=== PATIENT | male | born 1960 | race Caucasian/White ===

== ENCOUNTER 2022-11-14 18:58 | Emergency (ER) | payer OTHER, SELFPAY ==
[2022-11-14 19:17] VITALS: BP 148/84; PULSE 90; RESP 18; TEMP 36.9; O2SAT 99
--- NOTE | 2022-11-14 19:51 | PC.NURSE ---
1952-PATIENT REPORTS HE TOOK OXYCODONE 5 MG APPROXIMATELY ONE HOUR AGO. PATIENT REPORTS NO IMPROVEMENT IN SYMPTOMS. PATIENT REPORTS OXYCODONE IS IN EXCESS OF 2 YEARS OLD.
--- NOTE | 2022-11-14 20:44 | ED.NECK ---
HPI - Neck Pain/Injury General Chief Complaint: Neck Pain/Injury Stated Complaint: neck spasms x 1 week Time Seen by Provider: 11/14/22 19:58 History of Present Illness HPI Narrative: Patient is a 62-year-old male presenting with neck pain. Patient states that for the last 6 days he has had left-sided neck pain and spasms. States that it has intermittently gotten better but then this morning it was again as severe as it was on the first day. States that it is on the left side of his neck and goes into his left shoulder. States it feels like there is a kink in his neck. States he took some old oxycodone earlier today which did not really help. He denies any numbness or weakness. No speech or ambulatory difficulties. No vision changes. Denies recent trauma. Denies further complaints. Related Data Allergies Allergy/AdvReac Type Severity Reaction Status Date / Time No Known Allergies Allergy Unknown Verified 01/27/17 18:57 Review of Systems Review of Systems: All systems reviewed & are unremarkable except as noted in HPI and below Exam Narrative: GENERAL: Well-appearing, well-nourished, and in no acute distress. HEAD: Normocephalic, atraumatic. EYES: PERRLA and EOMI. ENT: Nares clear, no rhinorrhea or epistaxis. Mucous membranes moist. NECK: Supple. No midline tenderness; +tenderness of left sided paraspinal muscles in cervical spine into the left shoulder and trapezius CHEST: No respiratory distress. HEART: Regular rate and rhythm. ABDOMEN: nondistended EXTREMITIES: Normal range of motion. No edema. SKIN: Warm, dry, no rash. NEURO: No focal deficits. Alert and oriented x3. PSYCH: Normal mood and affect. Course Vital Signs Vital signs: Vital Signs Temperature 98.5 F 11/14/22 19:17 Pulse Rate 90 11/14/22 19:17 Respiratory Rate 18 11/14/22 19:17 Blood Pressure 148/84 H 11/14/22 19:17 Pulse Oximetry 99 11/14/22 19:17 Temperature 98.5 F 11/14/22 19:17 Pulse Rate 85 11/14/22 21:28 Respiratory Rate 20 11/14/22 21:28 Blood Pressure 130/90 11/14/22 21:28 Pulse Oximetry 100 11/14/22 21:28 MDM - Neck Pain/Injury MDM Narrative Medical decision making narrative: Patient is a 62-year-old male presenting with left-sided neck pain off and on for the last week. Vitals are within normal limits. Exam is remarkable for the above. He is neurologically intact. Suspect cervical muscle spasms as they have been coming and going and he states that certain movements worsen it. He is focally tender in his left paraspinal muscles extending into his left trapezius. We will treat symptomatically with IM Toradol, Flexeril, Vicodin. Advise very close PCP follow-up. Strict return precautions given. Patient and his voiced understanding and are agreeable with plan. Discharged in stable condition. Differential Diagnosis Differential diagnosis: Likely strain of neck muscle Medical Records Attestation: I reviewed the patient's medical records. Critical Care Time Critical Care Time Critical Care Time: No Discharge Plan Discharge Clinical Impression: Cervical paraspinal muscle spasm Patient Disposition: Home, Self-Care Condition: Stable Instructions: Antibiotic Form, Neck Pain (ED) Additional Instructions: Please use the medications as prescribed for your pain. Please follow-up closely with your PCP. If your symptoms worsen, you develop numbness or weakness, vision or speech changes, or other concerning symptoms arise, please return to the ER. Prescriptions: New hydrocodone-acetaminophen 5-325 mg tablet 1 tablet PO Q6H PRN (Reason: pain) Qty: 7 0RF cyclobenzaprine 10 mg tablet 10 mg PO TID PRN (Reason: muscle spasm) Qty: 20 0RF Follow-up/Referrals: Luis Enrique,Gus Shah MD [Primary Care Provider] -
[2022-11-14] MEDS: HYDROcodone/acetaminophen (*CRX) 5-325 MG TABLET 1 TAB PO (20:52)
[2022-11-14] MEDS: CYCLOBENZAPRINE HCL 10 MG TABLET PO (20:52)
[2022-11-14] MEDS: KETOROLAC 30 MG/ML VIAL (*BKC) IM (20:54)
[2022-11-14 21:28] VITALS: BP 130/90; PULSE 85; RESP 20; O2SAT 100
== END 2022-11-14 21:10 | disposition home or self-care (01) ==
PROVIDERS: Emergency Provider Emergency Medicine; PCP Internal Medicine
DX: M62.838 Other muscle spasm (principal)
CPT/HCPCS: 96372; 99283; A9270; J1885

== ENCOUNTER 2025-06-01 06:58 | Outpatient (CLI) | payer MEDICARE, SELFPAY ==
--- NOTE | ~2025-06-01 | MR_ITS ---
EXAMINATION: MR shoulder LT wo con DATE: 06/01/2025 07:32 INDICATION: Left shoulder lesion TECHNIQUE: Magnetic resonance imaging (MRI) of the left shoulder was performed without intravenous contrast. Sequences included axial PD-weighted FS FSE, coronal oblique PD-weighted FS FSE, coronal oblique T2-weighted FS FSE, sagittal PD-weighted FS FSE, and sagittal T1-weighted SE. COMPARISON: None. FINDINGS: Coracoacromial arch: There are postoperative change of prior acromioplasty and distal clavicle resection including multiple foci of susceptibility artifact. Rotator cuff: Numerous additional foci of susceptibility artifact along the greater tuberosity consistent with likely prior rotator cuff repair. There is a recurrent full- thickness tear involving all but a very small portion of the anterior most supraspinatus tendon and posterior most infraspinatus tendon. There is a small amount of free tendon material along the greater tuberosity footplate. There is 4 cm medial retraction of the tear margin which is positioned at the level of the glenoid labrum. The teres minor tendon is normal. And mild to moderate disc compatible there is tendinopathy with partial tear along the lateral margin of the lesser tuberosity footplate. This extends up to 2 cm medially as a longitud inal split tear between the deeper portion of the tendon which remains contiguous with the lesser tuberosity and the bursal side of the tendon which remains contiguous with the intact transverse humeral ligament. There is mild fatty atrophy of the supraspinatus and infraspinatus muscle bellies. Biceps tendon, glenoid labrum and glenohumeral cartilage: The long head of the biceps tendon is subluxed across the medial rim of the intertubercular groove and into the subscapularis tendon tear defect. There is moderate tendinopathy of the long head biceps tendon with fusiform thickening and increased signal adjacent the junction of the intra-articular and extra- articular portions of the tendon. There is thickening and amorphous increased signal along the posterior glenoid labrum consistent with labral degeneration. There is a more well-defined linear tear at the base of the posterior superior labrum. Moderate glenohumeral osteoarthritis with partial-thickness cartilage loss with smooth chondral surface involving greater than 50% of the cartilage thickness along the cephalad aspect of the glenoid and the superomedial aspect of the humeral head. Fluid: Moderate glenohumeral joint effusion which extends through the full-thickness rotator cuff tear ischemic fluid in the subacromial/subdeltoid bursa. There is prominent synovitis at the axillary recess. There is increased fluid and mild synovitis along the long head biceps tendon sheath. No loose osteochondral bodies. Bones: Bone alignment is normal. No fracture or pathologic marrow replacing process. IMPRESSION: 1. Postoperative change of prior acromioplasty, distal clavicle resection and rotator cuff repair with recurrent large full-thickness tear involving the majority of the supraspinatus and infraspinatus tendons. 2. Moderate tendinopathy and partial-thickness tear along the lateral side of the lesser tuberosity footplate of the tendon propagating 3 cm medially is a split tear between the deep and bursal sides of the tendon. 3. Mild bicipital tenosynovitis with moderate tendinopathy of the long head biceps tendon which is subluxed across the medial rim of the intertubercular groove and into the subscapular tendon tear defect. 4. Moderate glenohumeral osteoarthritis with degeneration of the inferior labrum and small tear at the posterior inferior labrum. Reviewed, dictated and finalized at location [facility]. [employer] [employer] IMPRESSION: 1. Postoperative change of prior acromioplasty, distal clavicle resection and r otator cuff repair with recurrent large full-thickness tear involving the major ity of the supraspinatus and infraspinatus tendons. 2. Moderate tendinopathy and partial-thickness tear along the lateral side of t he lesser tuberosity footplate of the tendon propagating 3 cm medially is a spl it tear between the deep and bursal sides of the tendon. 3. Mild bicipital tenosynovitis with moderate tendinopathy of the long head bic eps tendon which is subluxed across the medial rim of the intertubercular groov e and into the subscapular tendon tear defect. 4. Moderate glenohumeral osteoarthritis with degeneration of the inferior labru m and small tear at the posterior inferior labrum.
== END 2025-06-01 06:59 | disposition home or self-care (01) ==
PROVIDERS: PCP Internal Medicine; Visit Provider Orthopaedic Surgery
DX: Z47.89 Encounter for other orthopedic aftercare (principal); M75.82 Other shoulder lesions, left shoulder; M75.122 Complete rotator cuff tear or rupture of left shoulder, not specified as traumatic; S43.432A Superior glenoid labrum lesion of left shoulder, initial encounter; X58.XXXA Exposure to other specified factors, initial encounter; M19.012 Primary osteoarthritis, left shoulder; M65.912 Unspecified synovitis and tenosynovitis, left shoulder; Z98.890 Other specified postprocedural states
CPT/HCPCS: 73221